=== PATIENT | female | born 1995 | race Two or more races ===

== ENCOUNTER 2016-06-16 16:04 | Emergency (ER) | payer OTHER | END 2016-06-16 16:51 | disposition home or self-care (01) | LOC: ED 16:04 | DX: S39.012A Strain of muscle, fascia and tendon of lower back, initial encounter (principal); X50.0XXA Overexertion from strenuous movement or load, initial encounter; Y92.512 Supermarket, store or market as the place of occurrence of the external cause; Y99.0 Civilian activity done for income or pay ==